=== PATIENT | female | born 1990 | race Caucasian/White ===

== ENCOUNTER 2017-07-22 10:03 | Day surgery (SDC) | payer OTHER ==
[2017-07-19 13:35] LABS: BASOPHILS 0.2 %; BASOPHILS ABSOLUTE 0.01 10/3/uL (0.0-0.16); EOSINOPHILS 1.6 %; EOSINOPHILS ABSOLUTE 0.09 10/3/uL (0.0-0.53); HEMATOCRIT 37.2 % (36.0-48.0); HEMOGLOBIN 12.5 g/dL (12.0-16.0); LYMPHOCYTES 23.1 %; LYMPHOCYTES ABSOLUTE 1.33 10/3/uL (0.67-4.30); MEAN CORPUS HGB CONC 33.6 g/dL (32.0-36.0); MEAN CORPUSCULAR HEMOGLOB 29.8 pg (26.0-34.0); MEAN CORPUSCULAR VOLUME 88.8 fL (80-100); MEAN PLATELET VOLUME 9.8 fL (9.2-13.0); MONOCYTES 10.6 %; MONOCYTES ABSOLUTE 0.61 10/3/uL (0.21-1.20); NEUTROPHILS 64.5 %; NEUTROPHILS ABSOLUTE 3.71 10/3/uL (2.02-8.40); PLATELET COUNT 261 10/3/uL (150-400); RBC DISTRIBUTION WIDTH 12.6 % (12.0-16.0); RED CELL COUNT 4.19 10/6/uL (4.0-5.6)
[2017-07-19 13:36] LABS: MANUAL DIFF NO %; WHITE BLOOD CELLS 5.8 10/3/uL (4.5-10.5)
[2017-07-19 13:47] LABS: BUN (BLOOD UREA NITROGEN) 10 MG/DL (6-23); CALCIUM, SERUM 9.1 MG/DL (8.5-10.4); CHLORIDE, SERUM 108 MMOL/L (96-112); CO2 (CARBON DIOXIDE) 28 MMOL/L (24-34); CREATININE 0.74 MG/DL (0.55-1.02); GFR AFRICAN AMERICAN 128 ML/MIN (>=60); GFR NON AFRICAN AMERICAN 110 ML/MIN (>=60); GLUCOSE, SERUM 72 MG/DL (60-99); POTASSIUM, SERUM 3.9 MMOL/L (3.5-5.3); SODIUM, SERUM 142 MMOL/L (135-148)
[~2017-07-22] VITALS: Ht 162.6 cm; Wt 79.4 kg
--- NOTE | ~2017-07-22 | OP ---
Record Of Operation [facility] [address] [place]. [address] NAME: LENY CANO : 86 STATUS : [place] [facility] [place] PAT#: [id number] AGE: 26 ADM/REG DATE : 07/22/17 MR#: [id number] REPORT SERV DATE: 07/22/17 DICTATED BY: MALATHI DOHERTY DATE: 07/22/17 REPORT STATUS : Draft TRANSCRIBED BY: VILMA DATE: 07/22/17 DATE OF PROCEDURE: 07/22/2017 SERVICE: Otolaryngology. PREOPERATIVE DIAGNOSIS: Chronic tonsillitis. POSTOPERATIVE DIAGNOSIS: Chronic tonsillitis. PROCEDURE: Tonsillectomy. ANESTHESIA: General endotracheal anesthesia. ESTIMATED BLOOD LOSS: 3 mL. COMPLICATIONS: None. SPECIMENS: 1. Left tonsil. 2. Right tonsil. FINDINGS: The patient had 3+ cryptic tonsils. STATEMENT OF MEDICAL NECESSITY: This is a 26-year-old female with history of chronic sore throat, recurrent strep, and tonsillitis. Given her clinical history and physical exam, I recommended the above surgery. STATEMENT OF OPERATION: The patient was brought to the operating room in supine position and transferred over to the operating room table. After all pressure points were padded and general endotracheal anesthesia was established, the patient's neck was placed in slight extension with a shoulder roll and draped out for a tonsillectomy. Bacitracin ointment was applied to the lips. Afrin instilled in each nostril. A McIvor mouth gag was inserted and locked for retraction of tongue and oral cavity. A red rubber catheter was passed through the right naris and brought out to the mouth and locked for retraction of soft palate and uvula. A total of 5 mL of 0.25% plain Marcaine were injected into the peritonsillar spaces and parapharyngeal muscles bilaterally. The left tonsil was removed first by the suction cautery followed by the right tonsil. The nasopharynx and pharynx were irrigated thoroughly with warm saline. The stomach and oropharynx were suctioned clear of blood and fluid with an orogastric tube. The red rubber catheter and McIvor were removed. The patient was turned back over to Anesthesia where she awoke, was extubated, and transferred to the PACU in stable condition. PS/VILMA Record Of [place] [address] [address] [address] NAME: LENY CANO : 86 STATUS : [place] [facility] [place] PAT#: [id number] AGE: 26 ADM/REG DATE : 07/22/17 MR#: [id number] REPORT SERV DATE: 07/22/17 DICTATED BY: MALATHI DOHERTY DATE: 07/22/17 REPORT STATUS : Draft TRANSCRIBED BY: VILMA DATE: 07/22/17 Malathi Doherty MD / [id number] CC: Malathi Doherty MD NO PCP
[~2017-07-22 10:03] MED LIST: CLARIT10 PO; DIL4TAB PO; FISH-EPA1000 MG PO; K500 PO; MAGOX4 PO; MOMUD PO; PR25 PO; PRENAVITE PO; WELLXL300 PO; X25 PO; [UNRECOGNIZED DRUG - OTHER] PO
== END 2017-07-22 23:59 | disposition home or self-care (01) ==
LOC: MSC 10:03
PROVIDERS: Otolaryngology
PROC: 0CBPXZZ Excision of Tonsils, External Approach (ICD-10-PCS; principal; 2017-07-22 11:45)
DX: J35.8 Other chronic diseases of tonsils and adenoids (principal); J35.01 Chronic tonsillitis; F41.8 Other specified anxiety disorders; G43.909 Migraine, unspecified, not intractable, without status migrainosus; Z90.13 Acquired absence of bilateral breasts and nipples; Z98.890 Other specified postprocedural states; Z85.3 Personal history of malignant neoplasm of breast; Z88.0 Allergy status to penicillin; Z88.8 Allergy status to other drugs, medicaments and biological substances; Z79.899 Other long term (current) drug therapy
CPT/HCPCS: 80048; 84703; 85025; 88304; 93005; A9270-GY; J0330; J2250; J2405; J3010